=== PATIENT | female | born 1950 | race Two or more races ===

== ENCOUNTER 2023-05-07 07:30 | Day surgery (SDC) | payer OTHER | END 2023-05-07 11:30 | disposition home or self-care (01) | LOC: AMB-ENDOS 07:30 → CIR.AMB 13:15 | PROVIDERS: ATTEND Surgery | DX: K63.5 Polyp of colon (principal); K57.30 Diverticulosis of large intestine without perforation or abscess without bleeding; R19.4 Change in bowel habit; R93.5 Abnormal findings on diagnostic imaging of other abdominal regions, including retroperitoneum; Z20.822 Contact with and (suspected) exposure to COVID-19 ==